=== PATIENT | female | born 1975 | race Caucasian/White ===

== ENCOUNTER 2018-11-16 15:29 | Emergency (ER) | payer BC ==
[~2018-11-16] VITALS: Ht 165.1 cm; Wt 61.4 kg
[~2018-11-16 15:29] MED LIST: CHLO25CA10 PO
--- NOTE | 2018-11-16 15:31 | NUR ---
BIB EMS with heavy drinking all day. Difficulty arousing patient per EMS. No hx or meds. uncooperative at times and emotional. assisted onto gurjoseph and gojamie applied.
[2018-11-16] MEDS ORDERED: normal saline 1000ML IV soln IVB ONE (15:55)
--- NOTE | 2018-11-16 16:11 | NUR ---
RN REHABILITATION AT BEDSIDE, 1ST LITER NS INFUSING W/O
[2018-11-16 16:31] LABS: BASOPHILS # (AUTO) 0.1 X10'3 (0-0.2); BASOPHILS % (AUTO) 1.3 % (0-1); EOSINOPHILS # (AUTO) 0.1 X10'3 (0-0.9); HEMATOCRIT 41.1 % (35.0-45.0); LYMPHOCYTES # (AUTO) 1.4 X10'3 (1.1-4.8); LYMPHOCYTES % (AUTO) 28.6 % (21-51); MEAN CORPUSCULAR HEMOGLOBIN 38.1 PG (27.0-31.0); MEAN CORPUSCULAR HGB CONC 33.9 % (33.0-36.5); MEAN CORPUSCULAR VOLUME 112.2 FL (78-98); MEAN PLATELET VOLUME 7.7 FL (7.4-10.4); MONOCYTES # (AUTO) 0.5 X10'3 (0-0.9); MONOCYTES % (AUTO) 10.8 % (2-12); NEUTROPHILS # (AUTO) 2.9 X10'3 (1.8-7.7); NEUTROPHILS % (AUTO) 57.3 % (42-75); PLATELET COUNT 194 X10'3 (140-440); RED BLOOD COUNT 3.66 X10'6 (4.20-5.60); RED CELL DISTRIBUTION WIDTH 14.8 % (11.5-14.5); WHITE BLOOD COUNT 5.1 X10'3 (4.5-11.0)
[2018-11-16 16:48] LABS: ALANINE AMINOTRANSFERASE 66 U/L (12-78); ALBUMIN 3.4 G/DL (3.4-5.0); ALBUMIN/GLOBULIN RATIO 0.9 (1.1-1.5); ALKALINE PHOSPHATASE 124 IU/L (46-116); ANION GAP 14 (8-16); ASPARTATE AMINO TRANSFERASE 199 U/L (10-37); BILIRUBIN,TOTAL 0.2 MG/DL (0.1-1.0); BLOOD UREA NITROGEN 5 MG/DL (7-18); BUN/CREATININE RATIO 8.9 (6.6-38.0); CALCIUM 8.7 MG/DL (8.5-10.1); CHLORIDE 108 MMOL/L (99-107); CREATININE 0.56 MG/DL (0.40-0.90); GLUCOSE 105 MG/DL (70-104); POTASSIUM 3.4 MMOL/L (3.5-5.1); SODIUM 149 MMOL/L (135-145); TOTAL CARBON DIOXIDE 27.3 MMOL/L (24-32); TOTAL PROTEIN 7.1 G/DL (6.4-8.2); eGFR > 90 ML/MIN
[2018-11-16 16:49] LABS: MAGNESIUM 1.5 MG/DL (1.5-2.4)
--- NOTE | 2018-11-16 17:35 | NUR ---
PT AMB WITH STEADY GAIT TO RESTROOM
--- NOTE | 2018-11-16 17:37 | NUR ---
PT TO BE DC'D, URINE SAMPLE NOT NEEDED
--- NOTE | 2018-11-16 17:41 | NUR ---
PT HAS RIDE HOME WITH BOYFRIEND, ETA APPROX 30 MINUTES
[2018-11-16 18:24] VITALS: BP 102/78
[2018-11-17 11:59] LABS: PLATELET ESTIMATE NORMAL
== END 2018-11-16 18:28 | disposition home or self-care (01) ==
LOC: ER 15:30
DX: F10.929 Alcohol use, unspecified with intoxication, unspecified (principal); E86.0 Dehydration; F17.200 Nicotine dependence, unspecified, uncomplicated
CPT/HCPCS: 36415; 80053; 80320; 83735; 85025; 93005; 96360; 99284; J7030